=== PATIENT | male | born 1955 | race African-American/Black ===

== ENCOUNTER 2023-03-23 16:06 | Emergency (ER) | payer OTHER ==
[2023-03-23 16:16] VITALS: BP 131/74; PULSE 50; RESP 16; TEMP 98.2; BMI 26.4
[2023-03-23 19:26] LABS: URINE APPEARANCE CLEAR; URINE BILIRUBIN NEGATIVE (NEGATIVE); URINE COLOR YELLOW; URINE GLUCOSE (UA) NEGATIVE (NEGATIVE); URINE KETONE TRACE (NEGATIVE); URINE LEUK ESTERASE NEGATIVE (NEGATIVE); URINE NITRITE NEGATIVE (NEGATIVE); URINE PROTEIN NEGATIVE (NEGATIVE)
== END 2023-03-23 20:47 | disposition home or self-care (01) ==
LOC: JER 16:06
DX: R10.31 Right lower quadrant pain (principal); R19.09 Other intra-abdominal and pelvic swelling, mass and lump; R59.0 Localized enlarged lymph nodes
CPT/HCPCS: 76856-TC; 81003; 99284-25